=== PATIENT | female | born 1950 | race African-American/Black ===

== ENCOUNTER 2018-04-15 12:25 | Day surgery (SDC) | payer OTHER ==
[~2018-04-15] VITALS: Ht 160 cm; Wt 112.5 kg
[~2018-04-15 12:25] MED LIST: ALBU8HFA IH; APIX2.5T PO; ATOR40TA28 PO; BECL10.62 IH; CARV6 PO; CLON1 PO; GABA-531 PO; HYDR2TAB5 PO; IPRA4AER IH; ISOS60TA4 PO; KDUR10 PO; LISI-661 PO; MELO-107 PO; MIRT15 PO; MOME17N NASAL; NYST15PO3 TP; OMEP20 PO; OXYB5 PO; OXYC-522 PO; POLY119P17 PO; SODIUM CHLORIDE 0.9% 1,000 ML IV ONE; TRIA15CR45 TP; VITAD1000 PO
[2018-04-15] MEDS ORDERED: PROPOFOL 1% 20 ML VIAL IVP ONE (12:26)
[2018-04-15] MEDS ORDERED: LIDOCAINE/PF 2% 5 ML VIAL IM ONE (12:26)
[2018-04-15] MEDS ORDERED: SODIUM CHLORIDE 0.9% 1,000 ML IV ONE (12:30)
== END 2018-04-15 15:15 | disposition home or self-care (01) ==
LOC: SURGERY 12:25
PROVIDERS: ATTEND Student in an Organized Health Care Education/Training Program
DX: K31.7 Polyp of stomach and duodenum (principal); K29.50 Unspecified chronic gastritis without bleeding; K31.89 Other diseases of stomach and duodenum; K21.9 Gastro-esophageal reflux disease without esophagitis; I11.0 Hypertensive heart disease with heart failure; I50.9 Heart failure, unspecified; J44.9 Chronic obstructive pulmonary disease, unspecified; I25.10 Atherosclerotic heart disease of native coronary artery without angina pectoris; Z79.899 Other long term (current) drug therapy; E66.9 Obesity, unspecified; G47.33 Obstructive sleep apnea (adult) (pediatric); M19.90 Unspecified osteoarthritis, unspecified site; E78.00 Pure hypercholesterolemia, unspecified; M48.00 Spinal stenosis, site unspecified; G62.9 Polyneuropathy, unspecified; F17.210 Nicotine dependence, cigarettes, uncomplicated; F12.90 Cannabis use, unspecified, uncomplicated; F14.21 Cocaine dependence, in remission; Z87.19 Personal history of other diseases of the digestive system; Z86.718 Personal history of other venous thrombosis and embolism; Z86.711 Personal history of pulmonary embolism; Z99.3 Dependence on wheelchair; Z79.2 Long term (current) use of antibiotics; Z79.891 Long term (current) use of opiate analgesic; Z79.01 Long term (current) use of anticoagulants; Z90.49 Acquired absence of other specified parts of digestive tract; Z86.73 Personal history of transient ischemic attack (TIA), and cerebral infarction without residual deficits; Z68.41 Body mass index [BMI] 40.0-44.9, adult; Z96.653 Presence of artificial knee joint, bilateral; Z98.51 Tubal ligation status; Z98.890 Other specified postprocedural states; I45.2 Bifascicular block
CPT/HCPCS: 43239; 88305; 88312; 88313; 93005; C1769; J2704; J3490; J7030